=== PATIENT | male | born 1960 | race Caucasian/White ===

== ENCOUNTER 2016-11-07 17:16 | Emergency (ER) | payer OTHER ==
[2016-11-07 17:24] VITALS: BP 148/76; BMI 29.4
--- NOTE | 2016-11-07 17:34 | DR.CP ---
HPI - Time Seen Time seen: 18:55 - PCP Primary Care Physician: DR. WELLS - Complaint Chief Complaint:: " PT C/O ? ABCESS TO HIS LEFT LOWER TEETH , AND PT'S LEFT JAW IS SWOLLEN ... - Source History Provided: Patient - Mode of Arrival Mode of Arrival: Ambulatory - Timing Onset of Chief Complaint: 11/05/16 PMH - PMH Past Medical History: No Past Surgical History: Yes Surgical History: Ortho Surgery Past Surgical History Comment: BACK SUREGERY, TRIPLE FUSION, VASECTOMY, - Family History History of Family Medical Conditions: No - Social History Does patient currently use any type of tobacco product: Yes Have you used tobacco products in the last 12 months: Yes Type of Tobacco Use: Cigarettes How many years tobacco product used: 41 Does any household member use tobacco: No Alcohol Use: None Do you use any recreational Drugs:: No Lives With: Family Lives Where: Home - infectious screening In the last 2 months have you had wt loss of >10#?: NO Have you had fever, night sweats or hemotysis?: No Have you traveled outside the country in the last 6 months?: No Isolation: Standard ROS - Review of Systems Eyes: No Symptoms Reported ENTM: No Symptoms Reported Respiratoy: No Symptoms Reported Cardiovascular: No Symptoms Reported Gastrointestinal/Abdominal: No Symptoms Reported Genitourinary: No Symptoms Reported Neurological: No Symptoms Reported Musculoskeletal: No Symptoms Reported Integumentary: No Symptoms Reported Hematologic/Lymphatic: No Symptoms Reported Endocrine: No Symptoms Reported Psychiatric: No Symptoms Reported All Other Systems: Reviewed and Negative PE - Vitals Vitals: Temperature 98.6 F Pulse Rate 82 Respiratory Rate 22 Blood Pressure 148/76 O2 Sat by Pulse Oximetry 98 - General Limitations: No Limitations General Appearance: Alert - Head Head Exam: Normal Inspection - Eyes Eye exam: Normal Appearance, PERRL, EOMI, Other (left cheek swollen) - ENT ENT Exam: Normal Exam, Normal Oropharynx, Other (Tooth #19 with cavity) - Chest Chest Inspection: Normal Inspection, Symmetric Chest Wall Rise - Respiratory Respiratory Exam: Normal Lung Sounds Bilat Respiratory Exam: Bilateral Clear to Auscultation - Cardiovascular Cardiovascular Exam: Regular Rate, Normal Rhythm Pulse: Normal, Radial - Abdominal Exam Abdominal Exam: Normal Inspection, Normal Bowel Sounds, Soft Abdominal Tenderness: negative: RUQ, RLQ, LUQ, LLQ, Epigastrium, Suprapubic, Diffuse, Mild, Moderate, Severe, Other - Extremities Extremities Exam: Normal Inspection, Full ROM - Back Back Exam: Normal Inspection - Neurologic Neurological Exam: Alert, Oriented X3, CN II-XII Intact - Psychiatric Psychiatric Exam: Normal Affect - Skin Skin Exam: Warm, Dry, Intact - Diagnosis Discharge Problem: Dental abscess - Discharge Plan Condition: Stable - Follow ups/Referrals Follow ups/Referrals: JONATHAN WELLS [Primary Care Provider] - 3 days - Instructions
[2016-11-07] MEDS ORDERED: AUGMENTIN 500 MG/125 MG TAB PO ONE ×2 (19:06)
== END 2016-11-07 19:12 | disposition home or self-care (01) ==
LOC: ER 17:24
DX: K04.7 Periapical abscess without sinus (principal)
CPT/HCPCS: 99281; 99282; A4222